=== PATIENT | male | born 1970 | race Caucasian/White ===

== ENCOUNTER 2018-06-25 05:25 | Observation (INO) | payer BC ==
[~2018-06-25] VITALS: Ht 185.4 cm; Wt 90.0 kg
[2018-06-25 05:28] VITALS: Ht 185.4 cm; Wt 90.0 kg
--- NOTE | 2018-06-25 06:27 | ERD ---
ER Documentation Chief Complaint Chief Complaint NURSE SENT FOR ABNORMAL LABS, STATES HEMOGLOBIN WAS 6.0 HPI This is a 48-year-old male that presents to the emergency department after he received a call that outpatient ancillary laboratory work for preop knee arthroscopic surgery to be performed 4 days from today indicate an abnormality. He received a call from the clinic stating that his hemoglobin was low at 6.0. The patient indicates for the past several months he has had generalized myalgias and shortness of breath. He states he becomes more tired with simple activities which he never had before. He also indicates that over the past year he has had rectal bleeding with blood coating the stool. He states however for the past 2 months he has not noticed this. He denies any fever shaking or chills. He denies any swelling of his lower extremities. He denies any hemoptysis hematemesis or melanotic stools. ROS All systems reviewed and are negative except as per history of present illness. Medications Home Meds No Active Prescriptions or Reported Meds Allergies Allergies: Coded Allergies: No Known Allergy (Unverified , 06/25/18) PMhx/Soc Medical and Surgical Hx: pt denies Medical Hx, pt denies Surgical Hx History of Surgery: No Anesthesia Reaction: No Hx Neurological Disorder: No Hx Respiratory Disorders: No Hx Cardiac Disorders: No Hx Psychiatric Problems: No Hx Miscellaneous Medical Probl: No Hx Alcohol Use: No Hx Substance Use: No Hx Tobacco Use: No Smoking Status: Never smoker Physical Exam Vitals Vital Signs Date Temp Pulse Resp B/P (MAP) Pulse Ox O2 O2 Flow FiO2 Time Delivery Rate 06/25/18 14 116/85 99 Room Air 07:13 (95) 06/25/18 97.5 75 14 131/63 99 05:28 (85) Physical Exam Constitutional:Well-developed. Well-nourished. HEENT:Normocephalic. Atraumatic.Pupils were equal round reactive to light. Moist mucous membranes.No tonsillar exudates. Conjunctival pallor Neck: No nuchal rigidity. No lymphadenopathy. No posterior cervical spine tenderness or step-offs. Respiratory: Not using accessory muscles of respiration.Lungs were clear to auscultation bilaterally. No rhonchi. No rales. No wheezing. Cardiovascular: Regular rate regular rhythm.No murmurs. No rubs were appreciated.S1, S2 normal. Distal pulses are palpable 2+ bilaterally. GI: Abdomen was soft. Nontender. Non Distended. No pulsatile abdominal masses or bruits. No rebound. No guarding. Bowel sounds were present and normal. RECTAL: Fecal occult blood test positive. Muscle skeletal: Full range of motion of both the upper and lower extremities bilaterally.Normal muscle tone.No assymetrical calf tenderness or swelling. Skin: No petechia, no purpura. No lesions on the palms or the soles of the feet. No maculopapular rash. NEURO: Patient was alert, awake, orientated x3.No facial droop. Gait observed and normal with no ataxia.Speech had regular rate and rhythm. No focal neurol ogical deficits. Result Diagram: 06/25/18 0626 06/25/18 0626 Results 24 hrs Laboratory Tests Test 06/25/18 06:25 06/25/18 06:26 Creatine Kinase 39 IU/L Creatine Kinase Index 0.6 Creatinine Kinase MB (Mass) < 0.22 ng/ml Troponin I < 0.012 ng/ml White Blood Count 3.8 10^3/ul Red Blood Count 3.98 10^6/ul Hemoglobin 6.4 g/dl Hematocrit 24.7 % Mean Corpuscular Volume 62.1 fl Mean Corpuscular Hemoglobin 16.1 pg Mean Corpuscular Hemoglobin Concent 25.9 g/dl Red Cell Distribution Width 18.5 % Platelet Count 223 10^3/UL Mean Platelet Volume 9.5 fl Immature Granulocytes % 0.300 % Neutrophils % % Lymphocytes % % Monocytes % % Eosinophils % % Basophils % % Nucleated Red Blood Cells % 0.0 /100WBC Immature Granulocytes # 0.010 10^3/ul Neutrophils # 10^3/ul Lymphocytes # 10^3/ul Monocytes # 10^3/ul Eosinophils # 10^3/ul Basophils # 10^3/ul Nucleated Red Blood Cells # 10^3/ul Prothrombin Time 13.6 Sec Prothrombin Time Ratio 1.1 INR International Normalized Ratio 1.03 Activated Partial Thromboplast Time 27.6 Sec Sodium Level 143 mmol/L Potassium Level 4.1 mmol/L Chloride Level 107 mmol/L Carbon Dioxide Level 25 mmol/L Anion Gap 11 Blood Urea Nitrogen 17 mg/dl Creatinine 0.82 mg/dl Est Glomerular Filtrat Rate mL/min > 60 mL/min Glucose Level 95 mg/dl Calcium Level 9.3 mg/dl Ferritin 3.0 ng/ml Total Bilirubin 0.5 mg/dl Direct Bilirubin 0.00 mg/dl Indirect Bilirubin 0.5 mg/dl Aspartate Amino Transf (AST/SGOT) 22 IU/L Alanine Aminotransferase (ALT/SGPT) 37 IU/L Alkaline Phosphatase 57 IU/L Lactate Dehydrogenase 320 IU/L Total Protein 7.6 g/dl Albumin 4.4 g/dl Globulin 3.20 g/dl Albumin/Globulin Ratio 1.37 Amylase Level 63 U/L Lipase 43 U/L Current Medications Medications Dose Sig/Natalio Start Time Status Last (Trade) Ordered Route PRN Stop Time Admin Dose Reason Admin IV Flush 10 ml STK-MED 06/25/18 DC 06/25/18 (NS 10 ml) ONCE .ROUTE 07:04 07:11 06/25/18 07:05 Sodium 100 ml @ ud STK-MED 06/25/18 DC 06/25/18 Chloride ONCE .ROUTE 07:04 07:11 06/25/18 07:05 Iohexol 150 ml STK-MED 06/25/18 DC 06/25/18 (Omnipaque ONCE .ROUTE 07:04 07:14 300mg/ ml) 06/25/18 07:05 Procedures/MDM This is a 48-year-old male that presented to the emergency department with abnormal lab work that indicated that the patient had severe anemia. He clinically had conjunctival pallor and there was concerning for symptomatic anemia and therefore the patient had IV access was established and ancillary laboratory work was performed. The patient's hemoglobin was 6.4 12 Lead EKG tracing ordered and reviewed by myself showed: Normal sinus rhythm of 69 bpm and no arrhythmia. IL interval normal. QRS duration normal. No ST segment elevation No ST segment depression. No changes consistent with acute ischemia. Due to the patient's abdominal pain and symptoms of lower gastrointestinal bleed I did feel is necessary to obtain a CT scan of the abdomen. This was reviewed by the radiologist myself the patient did have diverticulosis without diverticulitis that likely was a source of the patient's lower gastric intestinal bleed. I spoke with the patient and his and he did state that he has received authorization to receive an outpatient colonoscopy in the next several weeks. However the patient will be admitted to the medical surgical floor to complete his blood transfusion. He will be admitted to the hospitalist in serious condition. Critical Care: Time: 55 minutes Treatments/Evaluations: Close monitoring and treatment of unstable vital signs, cardiorespiratory, and neurologic status, while maintaining tight balance of fluid, respiratory, and cardiac interventions. Time does not include performing any of the above billable procedures. Departure Diagnosis: Primary Impression: Lower GI bleeding Additional Impression: Diverticulosis Diverticulosis site: unspecified location Diverticulosis bleeding: diverticulosis with bleeding Qualified Codes: K57.91 - Diverticulosis of intestine, part unspecified, without perforation or abscess with bleeding Condition: Serious PAYAL ABAD MD Jun 25, 2018 06:26
[2018-06-25] MEDS ORDERED: IOHEXOL 300MG/ML 150 ML BTL ONE (07:04)
[2018-06-25] MEDS ORDERED: SOD CHLORIDE 0.9% 100 ML ONE (07:04)
[2018-06-25] MEDS ORDERED: ACETAMINOPHEN 325 MG TAB PO PRN ×2 (08:30→09:30)
[2018-06-25] MEDS ORDERED: ONDANSETRON 4 MG INJ IV PRN ×2 (08:30→09:30)
--- NOTE | 2018-06-25 09:11 | HP ---
Date/Time of Note Date/Time of Note DATE: 06/25/18 TIME: 09:09 Assessment/Plan VTE Prophylaxis Pharmacological prophylaxis: NA/contraindicated Pharm contraindication: anticoag not tolerated Lines/Catheters [facility] Saline Lock Assessment/Plan Hospital Course 48-year-old male with no significant past medical history other than remote history of surgical removal of pituitary gland. The patient came into the emergency room because of anemia reported on outside lab work; was found to have evidence of significant anemia and will be admitted to inpatient setting for further treatment and evaluation. 1. Anemia. -Microcytic and hypochromic. -Etiology could be secondary to chronic blood loss from lower GI bleed. -Transfuse blood products. -CT abdomen and pelvis showing diverticulosis -Obtain gastroenterology consult. -Obtain iron panel. -Evaluate for evidence of any hemolysis. 2. Chronic lower GI bleed. -Etiology unclear. -Stool guaiac x1 negative. -Obtain gastroenterology consult. 3. Right knee injury. -Being evaluated by orthopedic surgery for elective repair. -Continue pain control. Plan: The patient will be admitted to inpatient medical surgical floor. The patient will be started on a clear liquid diet. The patient will be started on DVT prophylaxis with bilateral SCDs. The patient will remain a full code. Activities will be with assist. The rest of the patient's management will be based on the clinical course, inputs from consultants, and the results of diagnostic studies. Based on the patient's clinical presentation, he most probably requires at least 2 midnights' stay for further management and evaluation of his clinical presentation. The patient was seen in collaboration with Dr. Aldridge. Result Diagram: 06/25/1826 06/25/18 0626 Results 24hrs Laboratory Tests Test 06/25/18 06:25 06/25/18 06:26 Creatine Kinase 39 Creatine Kinase Index 0.6 Creatinine Kinase MB (Mass) < 0.22 Troponin I < 0.012 White Blood Count 3.8 L Red Blood Count 3.98 L Hemoglobin 6.4 *L Hematocrit 24.7 L Mean Corpuscular Volume 62.1 L Mean Corpuscular Hemoglobin 16.1 L Mean Corpuscular Hemoglobin Concent 25.9 L Red Cell Distribution Width 18.5 H Platelet Count 223 Mean Platelet Volume 9.5 Immature Granulocytes % 0.300 Neutrophils % Lymphocytes % Monocytes % Eosinophils % Basophils % Nucleated Red Blood Cells % 0.0 Immature Granulocytes # 0.010 Neutrophils # Lymphocytes # Monocytes # Eosinophils # Basophils # Nucleated Red Blood Cells # Prothrombin Time 13.6 Prothrombin Time Ratio 1.1 INR International Normalized Ratio 1.03 Activated Partial Thromboplast Time 27.6 Sodium Level 143 Potassium Level 4.1 Chloride Level 107 Carbon Dioxide Level 25 Anion Gap 11 Blood Urea Nitrogen 17 Creatinine 0.82 Est Glomerular Filtrat Rate mL/min > 60 Glucose Level 95 Calcium Level 9.3 Ferritin 3.0 L Total Bilirubin 0.5 Direct Bilirubin 0.00 Indirect Bilirubin 0.5 Aspartate Amino Transf (AST/SGOT) 22 Alanine Aminotransferase (ALT/SGPT) 37 Alkaline Phosphatase 57 Lactate Dehydrogenase 320 Total Protein 7.6 Albumin 4.4 Globulin 3.20 Albumin/Globulin Ratio 1.37 Amylase Level 63 Lipase 43 HPI/ROS Admit Date/Time Admit Date/Time Hx of Present Illness Reason for admission: Symptomatic anemia. Chronic lower GI bleed. Consultants 1. Joaquin Valdez MD, Gastroenterology. This is a 48-year-old male who denies any significant past medical history. The patient was in the process of getting ready for an elective right knee surgery. The patient had a blood work that showed significant anemia. Therefore, the patient was instructed to go to the nearest emergency room. Patient verbalized easy fatigability for the past 1 month or so. The patient also verbalized multiple episodes of melena that is infrequent along with blood clots in the melena. The patient reported that the last episode was more than a month ago. The patient and the patient's verbalized that he has been having these melena infrequently for the past few years. However, the patient did not seek any medical attention regarding this. The patient denied taking any NSAIDs. The patient denied using any alcohol. The patient denied any hematemesis. 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 In the emergency room, the patient was noted to have microcytic and hypochromic anemia with a hemoglobin hematocrit of 6.4 and 24.7 respectively. The patient had a WBC of 3.8. The patient's stool OB with guaiac was negative. The patient was transfused with blood products in the emergency room. ROS Constitutional: fatigue Eyes: no complaints ENT: no complaints Respiratory: shortness of breath (With exertion) Cardiovascular: no complaints Gastrointestinal: blood Genitourinary: no complaints Musculoskeletal: bone/joint pain (Right knee) Skin: no complaints Neurologic: no complaints Endocrine: no complaints Lymphatic: no complaints Psychological: no complaints Immunologic: no complaints PMH/Family/Social Past Medical History Medical History: no pertinent history Medications Current Medications Ondansetron HCl (Zofran Inj) 4 mg BRIDGE ORDER PRN IV NAUSEA/VOMITING; Start 06/25/18 at 08:30; Stop 06/26/18 at 08:29 Acetaminophen (Tylenol Tab) 650 mg ER BRIDGE PRN PO .MILD PAIN 1-3 OR TEMP; Start 06/25/18 at 08:30; Stop 06/26/18 at 08:29 Coded Allergies: No Known Allergy (Unverified , 06/25/18) Past Surgical History 1. Right shoulder surgery. 2. Brain surgery with removal of pituitary gland. Social History The patient lives at home with family. Alcohol Use: none Smoking Status: Never smoker Drug Use: none Exam/Review of Systems Vital Signs Vitals Vital Signs Date Temp Pulse Resp B/P (MAP) Pulse Ox O2 O2 Flow FiO2 Time Delivery Rate 06/25/18 97.7 79 16 116/94 100 Room Air 08:25 (101) Exam Exam General: Adequately build 48 year-old male lying in bed in no apparent distress. HEENT: Normocephalic, atraumatic. Eyes: Anicteric sclerae, conjunctivae clear. ENT: Nasal septum midline, oral mucosa is dry. Neck supple, no JVD noticed. Respiratory: Bilaterally clear breath sounds. No use of accessory muscles of respiration. No adventitious breath sounds. Cardiovascular: S1, S2 heard. Regular rate and rhythm. Abdomen: Soft, nontender, and nondistended. Bowel sounds positive in all 4 quadrants. Genitourinary: Deferred. Extremities: No cyanosis, no clubbing, no edema. Peripheral pulses palpable. Neurologic: Cranial nerves II through XII grossly intact. The patient is awake, alert, and oriented. Skin: Normal skin turgor. No skin rashes. Additional Comments CT Abdomen & Pelvis IMPRESSION: No definite acute abnormality of the abdomen or pelvis. Colonic diverticulosis without evidence of acute diverticulitis. MATT BUCIO NP Jun 25, 2018 09:11
[2018-06-25] MEDS ORDERED: NACL 0.9% 3 ML SYG IV SCH (09:30)
[2018-06-25] MEDS ORDERED: SOD CHLORIDE 0.9% 250 ML IV* ONE (09:59)
[2018-06-25 11:56] VITALS: BP 120/73; PULSE 62; RESP 18
[2018-06-25 15:17] VITALS: BP 116/71; PULSE 70; RESP 18
[2018-06-25] MEDS ORDERED: PEG/ELECTROLYTES 4L BTL PO ONE (15:30)
[2018-06-25] MEDS: SOD FERRIC GLUC COMPLX 125 MG in SOD CHLORIDE 0.9% 100 ML IVPB SCH (18:25)
[2018-06-25 19:40] VITALS: BP 112/70; PULSE 69; RESP 16
[2018-06-26] VITALS (16 sets, daily range): BP systolic 99–131; BP diastolic 62–85; PULSE 56–86; RESP 9–29
[2018-06-26] MEDS ORDERED: PROPOFOL 200 MG INJ ONE (07:00)
--- NOTE | 2018-06-26 09:25 | PN ---
Date/Time of Note Date/Time of Note DATE: 06/26/18 TIME: 09:22 Assessment/Plan VTE Prophylaxis Risk score (from [facility]0 risk: 1 SCD applied (from [facility] [place] No SCD contraindicated: low risk/ambulating Pharmacological prophylaxis: NA/contraindicated Pharm contraindication: bleeding Lines/Catheters [facility] Peripheral IV Assessment/Plan Problems: (1) Iron deficiency anemia due to chronic blood loss Status: Acute Comment: He came in critically anemic and has been transfused and is more stable. He is to receive his GI screening test and then should be able to go out depending upon the results of this. Please note that I have an uncomfortable feeling about this (2) Diverticulosis Status: Acute Comment: Noted on CT scan Qualifiers: Diverticulosis site: unspecified location Diverticulosis bleeding: diverticulosis with bleeding Qualified Codes: K57.91 - Diverticulosis of intestine, part unspecified, without perforation or abscess with bleeding (3) Osteoarthritis of right knee Status: Chronic Comment: He will be able to have his knee surgery once we have a better idea of what is going on with his iron status. Please note he is receiving parenteral iron Qualifiers: Osteoarthritis type: post-traumatic Qualified Codes: M17.31 - Unilateral post-traumatic osteoarthritis, right knee Result Diagram: 06/26/1852306/26/18 0524 Results 24hrs Laboratory Tests Test 06/25/18 16:03 06/26/18 05:24 Hemoglobin 8.1 #L 8.0 L Hematocrit 29.4 L 28.9 L White Blood Count 4.9 # Red Blood Count 4.43 L Mean Corpuscular Volume 65.2 L Mean Corpuscular Hemoglobin 18.1 L Mean Corpuscular Hemoglobin Concent 27.7 L Red Cell Distribution Width 21.5 H Platelet Count 251 Mean Platelet Volume Immature Granulocytes % 0.000 L Neutrophils % 59.0 Lymphocytes % 31.4 Monocytes % 5.9 Eosinophils % 2.9 Basophils % 0.8 Nucleated Red Blood Cells % 0.0 Immature Granulocytes # 0.000 Neutrophils # 2.9 Lymphocytes # 1.5 Monocytes # 0.3 Eosinophils # 0.1 Basophils # 0.0 Nucleated Red Blood Cells # 0.0 Sodium Level 143 Potassium Level 4.2 Chloride Level 105 Carbon Dioxide Level 26 Anion Gap 12 Blood Urea Nitrogen 11 Creatinine 0.84 Est Glomerular Filtrat Rate mL/min > 60 Glucose Level 90 Calcium Level 9.2 Phosphorus Level 3.1 Magnesium Level 2.0 Total Bilirubin 0.7 Direct Bilirubin 0.00 Indirect Bilirubin 0.7 Aspartate Amino Transf (AST/SGOT) 20 Alanine Aminotransferase (ALT/SGPT) 32 Alkaline Phosphatase 52 Total Protein 7.1 Albumin 4.2 Globulin 2.90 Albumin/Globulin Ratio 1.44 Triglycerides Level 72 Cholesterol Level 112 LDL Cholesterol, Calculated 62 HDL Cholesterol 36 Cholesterol/HDL Ratio 3.1 Thyroid Stimulating Hormone (TSH) Pending Free Thyroxine 1.03 CC: MARS QUINTEROS MD; MARY CHOE MD ; Subjective 24 Hr Interval Summary Free Text/Dictation Patient reports he is anxious to get the gastrointestinal investigation completed. Constitutional: no complaints Respiratory: no complaints Cardiovascular: no complaints Gastrointestinal: no complaints, other (Denies melena or bright red blood per rectum) Genitourinary: no complaints Musculoskeletal: no complaints Exam/Review of Systems Exam Vitals Vital Signs Date Temp Pulse Resp B/P (MAP) Pulse Ox O2 O2 Flow FiO2 Time Delivery Rate 06/26/18 97.4 71 20 116/65 98 07:27 (82) 06/25/18 Room Air 11:56 Intake and Output 06/25/18 06/25/18 06/26/18 1515:00 23:00 07:00 IntakeIntake Total 625 ml 450 ml BalanceBalance 625 ml 450 ml Constitutional: alert, oriented Neck: supple, non-tender Respiratory: clear to auscultation, normal air movement Cardiovascular: regular rate and rhythm, nl pulses Gastrointestinal: soft, nl liver, spleen, non-tender Results Results 24hrs Laboratory Tests Test 06/25/18 16:03 06/26/18 05:24 Hemoglobin 8.1 #L 8.0 L Hematocrit 29.4 L 28.9 L White Blood Count 4.9 # Red Blood Count 4.43 L Mean Corpuscular Volume 65.2 L Mean Corpuscular Hemoglobin 18.1 L Mean Corpuscular Hemoglobin Concent 27.7 L Red Cell Distribution Width 21.5 H Platelet Count 251 Mean Platelet Volume Immature Granulocytes % 0.000 L Neutrophils % 59.0 Lymphocytes % 31.4 Monocytes % 5.9 Eosinophils % 2.9 Basophils % 0.8 Nucleated Red Blood Cells % 0.0 Immature Granulocytes # 0.000 Neutrophils # 2.9 Lymphocytes # 1.5 Monocytes # 0.3 Eosinophils # 0.1 Basophils # 0.0 Nucleated Red Blood Cells # 0.0 Sodium Level 143 Potassium Level 4.2 Chloride Level 105 Carbon Dioxide Level 26 Anion Gap 12 Blood Urea Nitrogen 11 Creatinine 0.84 Est Glomerular Filtrat Rate mL/min > 60 Glucose Level 90 Calcium Level 9.2 Phosphorus Level 3.1 Magnesium Level 2.0 Total Bilirubin 0.7 Direct Bilirubin 0.00 Indirect Bilirubin 0.7 Aspartate Amino Transf (AST/SGOT) 20 Alanine Aminotransferase (ALT/SGPT) 32 Alkaline Phosphatase 52 Total Protein 7.1 Albumin 4.2 Globulin 2.90 Albumin/Globulin Ratio 1.44 Triglycerides Level 72 Cholesterol Level 112 LDL Cholesterol, Calculated 62 HDL Cholesterol 36 Cholesterol/HDL Ratio 3.1 Thyroid Stimulating Hormone (TSH) Pending Free Thyroxine 1.03 Medications Medication Current Medications IV Flush (NS 3 ml) 3 ml PER PROTOCOL IV ; Start 06/25/18 at 09:30 Ondansetron HCl (Zofran Inj) 4 mg Q6H PRN IV NAUSEA/VOMITING; Start 06/25/18 at 09:30 Acetaminophen (Tylenol Tab) 650 mg Q6H PRN PO .PAIN 1-3 OR TEMP; Start 06/25/18 at 09:30 Ferric Sodium Gluconate Complex 125 mg/Sodium Chloride 100 ml @ 100 mls/hr DAILY@1300 IVPB Last administered on 06/25/18at 18:25; Admin Dose 100 MLS/HR; Start 06/25/18 at 16:00; Stop 06/27/18 at 13:59 LUIZA MEDLEY MD Jun 26, 2018 09:25
[2018-06-26] MEDS ORDERED: SOD FERRIC GLUC COMPLX 125 MG in SOD CHLORIDE 0.9% 100 ML IVPB ONE (09:30)
[2018-06-26] MEDS: SOD FERRIC GLUC COMPLX 125 MG in SOD CHLORIDE 0.9% 100 ML IVPB SCH (13:00)
--- NOTE | 2018-06-26 14:43 | PREAC ---
Date/Time of Note Date/Time of Note DATE: 06/26/18 TIME: 14:42 Anesthesia Eval and Record Evaluation Time Pre-Procedure Interview DATE: 06/26/18 TIME: 14:42 Age 48 Sex male NPO: 8 hrs Preoperative diagnosis GI bleeding Planned procedure EGD colonoscopy Past Medical History Past Medical History: Includes Heme: Anemia Surgery & Anesthesia Issues No known issue Meds Anticoagulation: No Beta Yaya within 24 hr: No Reason Beta Yaya not given: Pt. not on B-Yaya No Active Prescriptions or Reported Meds Current Medications IV Flush (NS 3 ml) 3 ml PER PROTOCOL IV ; Start 06/25/18 at 09:30 Ondansetron HCl (Zofran Inj) 4 mg Q6H PRN IV NAUSEA/VOMITING; Start 06/25/18 at 09:30 Acetaminophen (Tylenol Tab) 650 mg Q6H PRN PO .PAIN 1-3 OR TEMP; Start 06/25/18 at 09:30 Ferric Sodium Gluconate Complex 125 mg/Sodium Chloride 100 ml @ 100 mls/hr DAILY@1300 IVPB Last administered on 06/25/18at 18:25; Admin Dose 100 MLS/HR; Start 06/25/18 at 16:00; Stop 06/27/18 at 13:59 Meds reviewed: Yes Allergies Coded Allergies: No Known Allergy (Unverified , 06/25/18) Allergies Reviewed: Yes Labs/Studies Labs Reviewed: Reviewed by anesthesiologist Result Diagram: 06/26/18 0524 06/26/18 0524 Laboratory Tests 06/26/18 05:24 test: N/A Studies: ECG (n/a), CXR (n/a) Pre-procedure Exam Last vitals Vital Signs Date Temp Pulse Resp B/P (MAP) Pulse Ox O2 O2 Flow FiO2 Time Delivery Rate 06/26/18 97.4 71 20 116/65 98 07:27 (82) 06/25/18 Room Air 11:56 Airway: Adequate mouth opening Mallampati: Mallampati I Teeth: Normal Lung: Normal Heart: Normal ASA Physical Status ASA physical status: 2 Emergency: None Planned Anesthetic General/MAC: MAC Planned Pain Management Parenteral pain med Pre-operative Attestations Prior to commencing anesthesia and surgery, the patient was re-evaluated, there was verification of: *The patient's identity *The results of appropriate recent lab work and preoperative vital signs *The above evaluation not changing prior to induction *Anesthetic plan, risk benefits, alternative and complications discussed with patient/family; questions answered; patient/family understands, accepts and wishes to proceed. SULY VINSON MD Jun 26, 2018 14:43
[2018-06-26] MEDS ORDERED: ONDANSETRON 4 MG INJ IV PRN (15:00)
[2018-06-26] MEDS ORDERED: FENTAnyl 50 MCG/ML VIAL ONE (15:36)
[2018-06-26] MEDS ORDERED: PROPOFOL 20 ML ONE (15:36)
--- NOTE | 2018-06-26 20:14 | CONS ---
DATE OF ADMISSION: 06/25/2018 DATE OF CONSULTATION: Dear Dr. Moon; Thank you for asking me to see Mr. Courtney in GI consultation. HISTORY OF PRESENT ILLNESS: The patient is a 48-year-old gentleman who apparently was found to have a low hemoglobin around 6 grams in the doctor's office. The blood count was done as a preop evaluation for a knee surgery and hence he was admitted to the hospital. He has no history of passi ng blood from the rectum or vomiting blood, no abdominal pain, no GI complaints. SOCIAL HISTORY: No smoking history, no alcoholism. He works for a [employer] company. PAST MEDICAL HISTORY: He never had any surgery before. REVIEW OF SYSTEM: Totally unremarkable. MEDICATIONS: None. No history of taking NSAIDs. FAMILY HISTORY: No family history of any medical problems. PHYSICAL EXAMINATION: GENERAL: The patient is a 48-year-old gentleman who at this time is alert and well built. VITAL SIGNS: He is afebrile. LABORATORY DATA: Hemoglobin on admission was 6.4 grams. The hematocrit 24.7, MCV is a 62.1, platele t count is 223. Albumin 4.4, amylase 63. Bilirubin 0.5. Prothrombin time 13.6, INR 1.1. The AST i s 22, ALT 37. CLINICAL IMPRESSION: The patient is presenting with history of severe iron-deficiency anemia, rule o ut peptic ulcer disease, rule out malignancy of the gastrointestinal tract. I doubt I may be dealing with a hematological causes of anemia like thalassemia, which certainly needs to be ruled out. PLAN: Plan at this time is recommend upper endoscopy as well as lower endoscopy. Continue Protonix I will be happy to follow this patient with you. Once again, doctor, thank you for this consultation. Dictated By: MARS MORRIS/KRIS Conf#: [id number] DID#: [id number] CC: CANDY MOON;*EndCC*
[2018-06-27 01:53] VITALS: BP 90/55; PULSE 77; RESP 18
--- NOTE | 2018-06-27 07:13 | PAC ---
Date/Time of Note Date/Time of Note DATE: 06/27/18 TIME: 07:13 Post-Anesthesia Notes Post-Anesthesia Note Last documented vital signs Vital Signs Date Temp Pulse Resp B/P (MAP) Pulse Ox O2 O2 Flow FiO2 Time Delivery Rate 06/27/18 97.9 77 18 90/55 (67) 98 Room Air 01:53 06/26/18 8.0 16:14 Activity: WNL Respiratory function: WNL Cardiovascular function: WNL Mental status: Baseline Pain reasonably controlled: Yes Hydration appropriate: Yes Nausea/Vomiting absent: No SULY VINSON MD Jun 27, 2018 07:13
[2018-06-27 07:28] VITALS: BP 106/62; PULSE 60; RESP 20
--- NOTE | 2018-06-27 09:12 | DS ---
Date/Time of Note Date/Time of Note DATE: 06/27/18 TIME: 09:08 Discharge Summary Admission/Discharge Info Admit Date/Time Jun 25, 2018 at 08:31 Discharge Date/Time June 27, 2018 Discharge Diagnosis Severe anemia with marked iron deficiency; diverticulosis coli; osteoarthritis Patient Condition: Fair Consults Gastroenterology-Dr. Valdez Procedures Colonoscopy and EGD my: Abdominal pelvic CT scan Hx of Present Illness Hx of Present Illness Reason for admission: Symptomatic anemia. Chronic lower GI bleed. Consultants 1. Mars Valdez MD, Gastroenterology. This is a 48-year-old male who denies any significant past medical history. The patient was in the process of getting ready for an elective right knee surgery. The patient had a blood work that showed significant anemia. Therefore, the patient was instructed to go to the nearest emergency room. Patient verbalized easy fatigability for the past 1 month or so. The patient also verbalized multiple episodes of melena that is infrequent along with blood clots in the melena. The patient reported that the last episode was more than a month ago. The patient and the patient's verbalized that he has been having these melena infrequently for the past few years. However, the patient did not seek any medical attention regarding this. The patient denied taking any NSAIDs. The patient denied using any alcohol. The patient denied any hematemesis. 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 In the emergency room, the patient was noted to have microcytic and hypochromic anemia with a hemoglobin hematocrit of 6.4 and 24.7 respectively. The patient had a WBC of 3.8. The patient's stool OB with guaiac was negative. The patient was transfused with blood products in the emergency room. HPI This is a 48-year-old male that presents to the emergency department after he received a call that outpatient ancillary laboratory work for preop knee arthroscopic surgery to be performed 4 days from today indicate an abnormality. He received a call from the clinic stating that his hemoglobin was low at 6.0. The patient indicates for the past several months he has had generalized myalgias and shortness of breath. He states he becomes more tired with simple activities which he never had before. He also indicates that over the past year he has had rectal bleeding with blood coating the stool. He states however for the past 2 months he has not noticed this. He denies any fever shaking or chills. He denies any swelling of his lower extremities. He denies any hemoptysis hematemesis or melanotic stools. Hospital Course Rosa 48-year-old male who was admitted with severe anemia. He was transfused 2 units of blood which brought his hemoglobin up nicely. His laboratory testing demonstrated a ferritin extremely low at 4, and a markedly low iron level with normal iron binding capacity and low percent saturation. He underwent EGD and colonoscopy which demonstrated diverticulosis but no si gnificant lesions although there was some gastric AVMs that were not bleeding. He is now in markedly improved condition as compared to the time of admission. Gastroenterology does recommend hematology consultation due to this iron deficiency anemia with a look toward performing possible bone marrow biopsy. However the patient is doing well he can be worked up as an outpatient. Home Meds No Active Prescriptions or Reported Meds Follow-up Plan Hematology consult-Dr. Davis; primary care physician within 1 week. Primary Care Provider William Ferrell MD Time spent on discharge: > 30 minutes Pending Labs Laboratory Tests Test 06/26/18 18:52 06/27/18 05:38 Sodium Level 144 mmol/L (135-144) Potassium Level 4.0 mmol/L (3.5-5.1) Chloride Level 101 mmol/L (97-110) Carbon Dioxide Level 28 mmol/L (21-31) Anion Gap 15 (5-13) Blood Urea Nitrogen 13 mg/dl (7-20) Creatinine 0.96 mg/dl (0.61-1.24) Est Glomerular Filtrat > 60 mL/min (>60) Rate mL/min Glucose Level 117 mg/dl (70-220) Calcium Level 9.9 mg/dl (8.4-10.2) White Blood Count 5.7 10^3/ul (4.8-10.8) Red Blood Count 4.34 10^6/ul (4.70-6.10) Hemoglobin 7.8 g/dl (14.0-18.0) Hematocrit 28.3 % (42.0-52.0) Mean Corpuscular Volume 65.2 fl (82.0-101.0) Mean Corpuscular Hemoglobin 18.0 pg (29.0-33.0) Mean Corpuscular 27.6 g/dl (32.0-37.0) Hemoglobin Concent Red Cell Distribution Width 22.6 % (11.5-14.5) Platelet Count 235 10^3/UL (140-415) Mean Platelet Volume 10.8 fl (7.4-10.4) Immature Granulocytes % 0.400 % (0.001-0.429) Neutrophils % 62.6 % (39.0-77.0) Lymphocytes % 27.6 % (15.0-51.0) Monocytes % 6.2 % (0.0-11.0) Eosinophils % 2.5 % (0.0-7.0) Basophils % 0.7 % (0.0-2.0) Nucleated Red Blood Cells % 0.0 /100WBC (0.0-0.0) Immature Granulocytes # 0.020 10^3/ul (0.0-0.031) Neutrophils # 3.5 10^3/ul (1.6-7.5) Lymphocytes # 1.6 10^3/ul (0.8-2.9) Monocytes # 0.4 10^3/ul (0.3-0.9) Eosinophils # 0.1 10^3/ul (0.0-0.5) Basophils # 0.0 10^3/ul (0.0-0.1) Nucleated Red Blood Cells # 0.0 10^3/ul (0.0-0.0) Copies To: CC: MARS VALDEZ MD; AVELINA DAVIS MD ; LUIZA MEDLEY MD Jun 27, 2018 09:12
--- NOTE | 2018-06-27 09:13 | PDOCDIS ---
Discharge Instructions DIAGNOSIS Discharge Diagnosis Severe anemia with marked iron deficiency; diverticulosis coli; osteoarthritis CONDITION [id number] Patient Condition: [id number] Fair HOME CARE INSTRUCTIONS: [id number] Diet Instructions: [id number] Regular ACTIVITY: [id number] Activity Restrictions: [id number] No Restrictions FOLLOW UP/APPOINTMENTS Follow-up Plan Hematology consult-Dr. Henderson [phone]; primary care physician, Dr. William Ferrell within 1 week. LUIZA MEDLEY MD Jun 27, 2018 09:13
[2018-06-27] MEDS ORDERED: FERR1TAB14 PO (09:14)
[2018-06-27] MEDS ORDERED: SOD FERRIC GLUC COMPLX 125 MG in SOD CHLORIDE 0.9% 100 ML IVPB ONE (10:00)
[2018-06-27] MEDS ORDERED: FERROUS FUMARATE (SR) TAB PO SCH (21:00)
== END 2018-06-27 14:15 | disposition home or self-care (01) ==
LOC: E/R 05:25 → 2NE 08:31
PROVIDERS: ADMIT Hospitalist; ATTEND Hospitalist
DX: D50.0 Iron deficiency anemia secondary to blood loss (chronic) (principal); K57.30 Diverticulosis of large intestine without perforation or abscess without bleeding; M17.11 Unilateral primary osteoarthritis, right knee; K29.00 Acute gastritis without bleeding; K31.819 Angiodysplasia of stomach and duodenum without bleeding
CPT/HCPCS: 36430; 43235; 74177; 80048; 80053; 80061; 80307; 81003; 82150; 82270; 82550; 82553; 82728; 83010; 83540; 83615; 83690; 83735; 84100; 84153; 84154; 84439; 84443; 84466; 84484; 85014; 85018; 85025; 85610; 85730; 86703; 86803; 86850; 86900; 86901; 86920; 87340; 88305; 88312; 93005; 99291; G0378; J2916; J3010; J7040; P9016; Q9967